=== PATIENT | female | born 1980 | race Caucasian/White ===

== ENCOUNTER 2017-09-23 20:33 | Emergency (ER) | payer OTHER ==
[~2017-09-23] VITALS: Ht 157.5 cm; Wt 77.6 kg
[2017-09-23 20:40] VITALS: BP 133/81
--- NOTE | 2017-09-23 20:43 | ED THROAT/DENTAL COMPLAINT ---
History of Present Illness General Chief Complaint: Sore Throat, Dental Pain Stated Complaint: "LT SIDE TOOTH PAIN" Source: patient Exam Limitations: no limitations Vital Signs & Intake/Output Vital Signs & Intake/Output Vital Signs Date Time Temp Pulse Resp B/P B/P Pulse O2 O2 Flow FiO2 Mean Ox Delivery Rate 09/24 2043 97 Room Air 09/24 2039 96.1 80 18 133/81 997 Room Air Allergies Coded Allergies: MDX - PCN (penicillin) (PCN (PENICILLIN)) (UNKNOWN 01/07/13) PT STATES NOT A TRUE ALLERY, BUT BELIEVES INCOMPATIBLE W/ ANTI-SEIZURE MEDS Reconcile Medications Clindamycin HCl 300 MG CAPSULE 1 CAP PO 4 TIMES/DAY infection Ibuprofen 800 MG TABLET 1 TAB PO TID PRN pain Oxycodone HCl/Acetaminophen (Percocet 5-325 MG Tablet) 5 MG-325 MG TABLET 1 TAB PO 4XDP PRN PAIN five...[id number] Triage Note: PT FROM HOME C/O DENTAL PAIN IN UPPER LEFT SIDE OF JAW (WISDOM TOOTH). PT STATES SHE HAS SEEN A DENTIST AND KNOWS SHE NEEDS IT PULLED, THE PAIN SUBSIDED AFTER A DEEP CLEANING, THEN RETURNED. PT STATES SHE HAS BEEN SELF MEDICATING WITH MOTRIN, AND NUMBING AGENTS, ICE PACKS WITH NO RELIEF. PT STATES "IT FEELS LIKE SOMEONE IS STABBING MY GUMS OVER AND OVER" PTS VSS. NO ACUTE DISTRESS NOTED. Triage Nurses Notes Reviewed? yes Onset: Gradual Duration: week(s):, waxing and waning Timing: recent history Injury Environment: home Severity: mild : No Patient currently breastfeeds: No HPI: 36 yo woman h/o "deep cleaning" 1 month ago in her left upper molars. "She said I need surgery for it." For the past several weeks, she has had worsening pain in her left upper molars, "it's so bad, I can't sleep... I've tried ibuprofen... lots of things and nothing works." She has no fever, chlils, difficulty swallowing or eating. She is otherwise well. Past History Travel History Traveled to [place] past 21 day No Medical History Any Pertinent Medical History? see below for history Neurological: seizure Respiratory: asthma Psychiatric: anxiety Surgical History Surgical History: none Psychosocial History What is your primary language Upper Sorbian Tobacco Use: Current Daily Use Daily Tobacco Use Amount/Type: => 5 Cigarettes daily Family History Hx Contributory? No Review of Systems Review of Systems Constitutional: Reports: no symptoms. EENTM: Reports: no symptoms. Respiratory: Reports: no symptoms. Cardiovascular: Reports: no symptoms. GI: Reports: no symptoms. Genitourinary: Reports: no symptoms. Musculoskeletal: Reports: no symptoms. Skin: Reports: no symptoms. Neurological/Psychological: Reports: no symptoms. Hematologic/Endocrine: Reports: no symptoms. Immunologic/Allergic: Reports: no symptoms. All Other Systems: Reviewed and Negative Physical Exam Physical Exam General Appearance: well developed/nourished, mild distress Head: atraumatic, normal appearance Eyes: Bilateral: normal appearance. Nose: normal inspection Mouth/Throat: left upper molars with tenderness to palpation, erythema in gum Neck: normal inspection Neurologic/Psych: no motor/sensory deficits, awake, alert, oriented x 3 Skin: intact, normal color, warm/dry Core Measures ACS in differential dx? No Sepsis Present: No Sepsis Focused Exam Completed? No Progress Differential Diagnosis: odontogenic abscess, stomatitis/gingivitis, tooth fracture Plan of Care: wrote for clindamycin, nsaids, percocet #5... pt has follow up tomorrow with oral surgeon. Departure Departure Disposition: HOME OR SELF CARE Condition: Stable Clinical Impression Primary Impression: Dental infection Referrals: Karthikeyan SWENSON,Francisco Merrill (PCP/Family) Departure Forms: Customer Survey General Discharge Information Prescriptions: Current Visit Scripts Clindamycin HCl 1 CAP PO 4 TIMES/DAY #40 CAP Ibuprofen 1 TAB PO TID PRN pain #30 TAB Oxycodone HCl/Acetaminophen (Percocet 5-325 MG Tablet) 1 TAB PO 4XDP PRN PAIN #5 TAB five...[id number]
[2017-09-23] MEDS ORDERED: IBUPROFEN800 M1 PO (20:47)
[2017-09-23] MEDS ORDERED: CLINDAMYCIN HC300 M1 PO (20:47)
[2017-09-23] MEDS ORDERED: PERCOCET 5-3251 EACH PO (20:47)
== END 2017-09-23 20:49 ==
LOC: ERH 20:33
DX: K04.7 Periapical abscess without sinus (principal)